=== PATIENT | female | born 1940 | race Caucasian/White ===

== ENCOUNTER 2016-08-09 14:54 | Emergency (ER) | payer MEDICARE ==
--- NOTE | 2016-08-09 15:57 | ERNOTE ---
Medical Problem HPI - Narrative Date of Service: 08/09/16 - General Chief Complaint: Nausea/Vomiting Time Seen by Provider: 08/09/16 15:56 Source: patient, family, RN notes reviewed Exam Limitations: no limitations - Immun/Allergies/Home Medications Immunizations: IMMUNIZATION HX Immunizations Up to Date Yes Allergies/Adverse Reactions: Allergies alcohol Allergy (Severe, Verified 08/09/16 15:04) Itching Sulfa (Sulfonamide Antibiotics) Allergy (Severe, Verified 08/09/16 15:04) Hives Home Medications: HOME MEDICATIONS Amlodipine Besylate 10 mg PO DAILY 08/29/13 [Last Taken Unknown] Aspirin [Aspirin Chewable] 81 mg PO DAILY 08/29/13 [Last Taken Unknown] Calcium Acetate [Phoslo] 667 mg PO TID 08/29/13 [Last Taken Unknown] Cinacalcet HCl [Sensipar] 30 mg PO DAILY 08/29/13 [Last Taken Unknown] Doxazosin Mesylate 4 mg PO DAILY 08/29/13 [Last Taken Unknown] Furosemide [Lasix] 80 mg PO BID 08/29/13 [Last Taken Unknown] Lanthanum Carbonate [Fosrenol] 1,000 mg PO TID 08/29/13 [Last Taken Unknown] Losartan Potassium 100 mg PO DAILY 08/29/13 [Last Taken Unknown] Ursodiol 250 mg PO QID 08/29/13 [Last Taken Unknown] Oseltamivir Phosphate [Tamiflu] 75 mg PO DAILY 08/09/16 [Last Taken Unknown] - History of Present History Narrative: 76 y/o female to ED by private vehicle for vomiting and feeling like she is dehydrated. She has been having vomiting and diarrhea, and not feeling well for about 5 days. She went to dialysis as usual early this morning, and then she saw her PCP and was diagnosed with influenza A. She was prescribed Tamiflu and took one dose when she got home, which she then threw up. She has also had a cough and chills. She cannot take any antipyretics for fever. Review of Systems - Review of Systems Constitutional: Present: fever, chills, fatigue, malaise, decreased activity level EYE: Present: no symptoms reported ENT: Present: nasal drainage. Absent: ear pain, nose congestion, sore throat Respiratory: Present: cough. Absent: shortness of breath, wheezing Cardiology: Absent: chest pain, syncope Gastrointestinal/Abdominal: Present: nausea, vomiting, diarrhea, eating less, drinking less. Absent: abdominal pain Genitourinary: Absent: dysuria, decreased urinary output Musculoskeletal: Present: muscle pain Skin: Absent: rash, lesions Neurological: Present: dizziness/light-headedness. Absent: headache Endocrine: Present: no symptoms reported Hematologic/Lymphatic: Present: no symptoms reported Psych: Present: no symptoms reported - Patient's Past Medical History Patient History - Medical: Anemia, Liver Disease - Cirrhosis, Renal Disease, Renal Failure - Chronic, stage 5, Other Patient History - Cardiac/Respiratory: Hypertension Patient History - Cancer: No Hx of Cancer Patient History - Surgical Procedures: Appendectomy, Colonoscopy, EGD, Hysterectomy, Total Knee Replacement, Other Patient History - Other: Other - Dialysis patient LMP (females 10-50): Menopausal - Social History Living Situations: home Psych History: No pertinent hx Alcohol Use: none Drug Use: none - Immunizations Immunizations Up to Date: Yes Physical Exam - Physical Exam General Appearance: Present: wd/wn, alert, other - appears mildly uncomfortable Ears, Nose, Throat: Present: hearing grossly normal, nasal congestion, normal pharynx. Absent: abnormal TM (R), abnormal TM (L), sinus pain/drainage Neck: Present: normal inspection, nontender, supple Respiratory: Present: no respiratory distress, normal breath sounds, no accessory muscle use, lungs clear Cardiovascular/Chest: Present: regular rate, rhythm, no murmur Gastrointestinal/Abdominal: Present: normal bowel sounds, nondistended, soft, tenderness - mild, diffuse Neurological Exam: Present: alert, oriented, normal mood/affect Skin Exam: Present: warm/dry, pallor ED Progress - Results and Orders Patient's Lab Results:: I have reviewed the patient's lab results. - Vital Signs Patient's Vital Signs:: I have reviewed the patient's vital signs. Vital Signs: Vital Signs 08/09/16 15:00 Temperature 38.0 C H Pulse Rate 59 L Respiratory 12 Rate Blood Pressure 166/73 O2 Sat by Pulse 95 Oximetry - Progress/Reassessment Chief Complaint: Nausea/Vomiting Progress:: Improved Progress Note-Subjective: 08/09/16 17:46 Verbalizes feeling better after IV NS bolus, tolerating small amounts of 7-Up, declines any nausea medication - states she doesn't want to take anymore than she already has to. Wants to go home after fluids. Discussed returning if symptoms worsen, patient agrees to plan. Departure - Departure Clinical Impression: Influenza A, Vomiting and diarrhea Disposition: Home Follow Up Needed Condition: Stable Instructions: Influenza, Adult, [id number] Additional Instructions: Continue your medications as directed Small amounts of clear liquids as tolerated Return for worsening symptoms Referrals: Roxie Cano DO [Primary Care Provider] -
[2016-08-09 16:18] LABS: Hemoglobin 10.7 gm/dL (12.5-16.0); Mean Corpuscular Hemoglobin 31.5 pg (27-31); Mean Corpuscular Hgb Conc 31.5 g/dl (32-36); Mean Platelet Volume 10.5 fl (6.0-9.5); Neutrophil # 2.4 K/mm3 (1.3-6.0); Neutrophil % 69.5 % (42-75.0); Platelet Count 100 K/mm3 (150-450); Red Cell Distribution Width 13.1 % (11.5-14.0); White Blood Count 3.5 K/mm3 (4.0-10.5)
--- OUTSIDE RECORDS SUMMARY | 2016-08-09 16:18 | XMS REPORT | Continuity of Care Document ---
:1940 Author Organization [facility] ([facility]) Address [address] [place] [address] Phone [phone] Care Team Providers Name Role Phone Lex Zuluaga Primary Care Provider [phone] Source Comments This disclosure is being made pursuant to the Care Everywhere program, applicable federal and state laws, and may not contain all informaitonavailable regarding this patient.[facility] ([facility]) Active Allergies and Adverse Reactions Allergen Noted Date Severity Reactions Comments Alcohol Antiseptic Pads 08/08/2012 Urticaria (Hives) Sulfadoxine Urticaria (Hives) Current Medications Prescription Sig. Disp. Refills Start End Date Status Date calcium acetate Take 667 mg by Active (PHOSLO) 667 mg cap mouth. With food. Takes approximately 5 capsules per day aspirin 81 mg take 81 mg by Active tablet mouth daily. losartan 100 mg Take 100 mg by Active tablet mouth at bedtime. lanthanum Take 1,000 mg by Active (FOSRENOL) 1,000 mg mouth 3 times chewable tablet daily with meals. cinacalcet Take 30 mg by Active (SENSIPAR) 30 mg mouth daily. tablet doxazosin 8 mg Take 8 mg by Active tablet mouth 2 times daily. cholecalciferol Take 2,000 Units Active (VITAMIN D3) 2,000 by mouth daily. unit tablet metoPROLol tartrate Take 12.5 mg by Active 25 mg tablet mouth 2 times daily. amLODIPine 10 mg Take 10 mg by Active tablet mouth daily. furosemide 80 mg Take 80 mg by Active tablet mouth daily. omeprazole 40 mg Take 1 capsule 90 capsule 3 Active enteric coated (40 mg total) by 6 capsule mouth daily. ursodiol 250 mg Take 2 tablets 360 tablet 3 01/27/201 Active tablet (500 mg total) by 7 mouth 2 times daily. ursodiol 250 mg Take 2 tablets 360 tablet 3 07/16/19 Discontinued tablet (500 mg total) by 5 17 mouth 2 times daily Active Problems Problem Noted Date Not immune to hep A or Hep B (has had series X2) 05/01/2015 Esophageal varices (1 small varix 06/2012) 09/20/2013 Overview: 07/20/12: esophagus appeared endoscopically normal and the Z-line was normal at 37 cm from the incisors. There was one very small esophageal varix that was without stigmata. 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 Overview: Last Assessment & Plan: She is a 75-year-old patient of Dr. Lex Zuluaga who has a background history of autosomal dominant polycystic kidney disease, end-stage renal disease on dialysis since 2007, (not a transplant audie te because of her liver) and chronic hypertension. 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 No history of ascites or encephalopathy, or GI bleeding. EGD on 2014 revealed a single esophageal varix without bleeding. It was small and did not require banding. There was no portal hypertensive gastropathy She has had an excellent response of her PBC to ursodeoxycholic acid. She has failed 2 attempts at vaccination for hepatitis A and B. she is reluctant to follow in [place] said before her liver and wasgiven a when necessary appointment to come back. Anemia in ESRD (end-stage renal disease) 02/09/2011 Last Assessment & Plan: Not a problem currently. Thrombocytopenia 02/09/2011 Uric acid nephrolithiasis 12/20/2008 Hypertension 12/20/2008 Polycystic kidney disease 10/10/2001 Overview: Numerous liver cysts on US in 10/10/2001. Largest 5.4 cm in Right lobe. No splenomegaly or evidence of cirrhosis/portal hypertension. 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 FREDERIC, ASMA and UC-ANCA were negative. Started on TIP 2000. Increased to 750 mg bid in 2002. Has had improving enzymes since with AP 170, GGT 47, AST 22 and ALT 14 on 11/12/08. 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 Cirrhosis (liver biopsy showing bridging fibrosis and imaging liver nodularity spleen 9.6 cm and platelets 106) -grade 1 nonbleeding varices (2012). No as cites. No encephalopathy She also has autosomal dominant polycystic kidney disease with end-stage kidney disease on dialysis since 2007 complicated by anemia. 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 Now with failing kidneys and approaching need for dialysis. Had AV fistula placed on 03/27. Last Assessment & Plan: Fighting high BP on dialysis X 5 years. Resolved Problems Problem Noted Date Resolved Date S/P biopsy 09/12/2012 02/01/2013 Most Recent Encounters Date Type Specialty Providers Description 07/16/2016 Refill Med GI/Hepatology Юлия Mcgovern, Dx: PBC ( primary biliary RN cirrhosis) (Primary Dx) 05/21/2016 Refill Med GI/Hepatology Susan Mays Dx: NSAID induced gastritis (Primary Dx) Social History Tobacco Use Types Packs/Day Years Used Date Never Smoker Smokeless Tobacco: Never Used Tobacco Cessation:Counseling Given: Yes Comments: Alcohol Use Drinks/Week oz/Week Comments No Occassional, less than once monthly Last Filed Vital Signs Vital Sign Reading Time Taken Blood Pressure 164/70 03/18/2016 7:00 AM CDT Pulse 80 03/18/2016 7:00 AM CDT Temperature 35.6 C (96.1 F) 03/18/2016 7:00 AM CDT Respiratory Rate 16 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 Height 1.549 m (5' 1") 03/18/2016 7:00 AM CDT Weight 60 kg (132 lb 4.4 oz) 03/18/2016 7:00 AM CDT Body Mass Index 25.01 03/18/2016 7:00 AM CDT Oxygen Saturation 93% 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 Plan of Care Date Type Specialty Providers Description 03/17/2017 Appointment Radiology Chief Comp: Patient Reported Reason For Visit 03/17/2017 Appointment Med GI/Hepatology Jacob Mathur MD Chief Comp: Patient [address] [place] [address] Visit [phone] (Fax) Health Maintenance Due Date Last Done Comments Hepatitis B Vaccine (1 of 3 - Primary 1940 Series) Tdap Vaccine 1953 Td Vaccine 1960 Mammogram 1982 Colonoscopy 07/04/1992 Zoster Vaccine 2002 Osteoporosis Screening (DXA Bone 2007 Density) Pneumococcal Vaccine (1 of 2 - PCV13) 2007 Lipid Disorder Screening 01/20/2015 01/20/2010, 11/14/2007, 09/10/2003 Influenza Vaccine: Seasonal (#1) 01/19/2016 Results from Last 3 Months Not on file
[2016-08-09 16:43] LABS: BUN/Creatinine Ratio 4.2 (9.0-21.6); Bilirubin, Total 0.4 mg/dL (0.0-1.1); Ca. Corrected For Albumin 8.1 mg/dL (8.4-10.2); Calcium * 7.6 mg/dL (7.9-10.9); Carbon Dioxide 31.6 mmol/L (24-32.6); Potassium 4.6 mmol/L (3.4-4.6); Total Protein 6.8 gm/dL (6.2-8.2)
[2016-08-09] MEDS: NORMAL SALINE 1,000 ML IV ONE ×2 (16:46→16:48)
[2016-08-09 17:59] VITALS: BP 194/63
== END 2016-08-09 18:07 | disposition home or self-care (01) ==
LOC: ER 14:54
DX: J10.1 Influenza due to other identified influenza virus with other respiratory manifestations (principal); N19 Unspecified kidney failure; I10 Essential (primary) hypertension

== ENCOUNTER 2016-10-22 13:28 | Emergency (ER) | payer MEDICARE ==
[2016-10-22 14:01] LABS: Hematocrit 35.2 % (37.0-47.0); Hemoglobin 11.2 gm/dL (12.5-16.0); Mean Corpuscular Hemoglobin 32.5 pg (27-31); Mean Corpuscular Hgb Conc 31.8 g/dl (32-36); Mean Platelet Volume 9.5 fl (6.0-9.5); Neutrophil # 2.8 K/mm3 (1.3-6.0); Neutrophil % 62.2 % (42-75.0); Platelet Count 106 K/mm3 (150-450); Red Blood Count 3.45 M/mm3 (4.2-5.4); Red Cell Distribution Width 14.5 % (11.5-14.0); White Blood Count 4.5 K/mm3 (4.0-10.5)
--- NOTE | 2016-10-22 14:05 | ERNOTE ---
<Kelly Lea - Last Filed: 10/22/16 14:04> Medical Problem HPI - General Chief Complaint: General Assessment Time Seen by Provider: 10/22/16 13:43 - Immun/Allergies/Home Medications Immunizations: IMMUNIZATION HX Immunizations Up to Date Yes History of Influenza Vaccine Yes Hx Pneumococcal Vaccination No Allergies/Adverse Reactions: Allergies alcohol Allergy (Severe, Verified 10/22/16 13:38) Itching Sulfa (Sulfonamide Antibiotics) Allergy (Severe, Verified 10/22/16 13:38) Hives Home Medications: HOME MEDICATIONS Amlodipine Besylate 10 mg PO DAILY 08/29/13 [Last Taken Unknown] Aspirin [Aspirin Chewable] 81 mg PO DAILY 08/29/13 [Last Taken Unknown] Calcium Acetate [Phoslo] 667 mg PO TID 08/29/13 [Last Taken Unknown] Cinacalcet HCl [Sensipar] 30 mg PO DAILY 08/29/13 [Last Taken Unknown] Doxazosin Mesylate 4 mg PO DAILY 08/29/13 [Last Taken Unknown] Furosemide [Lasix] 80 mg PO BID 08/29/13 [Last Taken Unknown] Lanthanum Carbonate [Fosrenol] 1,000 mg PO TID 08/29/13 [Last Taken Unknown] Losartan Potassium 100 mg PO DAILY 08/29/13 [Last Taken Unknown] Ursodiol 250 mg PO QID 08/29/13 [Last Taken Unknown] - Patient's Past Medical History Patient History - Medical: Anemia, Liver Disease, Renal Disease, Renal Failure, Other Patient History - Cardiac/Respiratory: Hypertension Patient History - Cancer: No Hx of Cancer Patient History - Surgical Procedures: Appendectomy, Colonoscopy, EGD, Hysterectomy, Total Knee Replacement, Other Patient History - Other: Other - Social History Living Situations: home Psych History: No pertinent hx Smoking Status: Never smoker Alcohol Use: none Drug Use: none - Immunizations Immunizations Up to Date: Yes Hx Pneumococcal Vaccination: No History of Influenza Vaccine: Yes Physical Exam - Physical Exam Pelvic Exam: Present: lesions - 9o cloc inner R vulva and 3 o clock inner L labia, puch biopsy sites with minimal bleeding but with active clotting healing as expected no closure needed. ED Progress - Vital Signs Vital Signs: Vital Signs 10/22/16 13:33 Temperature 36.2 C L Pulse Rate 59 L Respiratory 16 Rate Blood Pressure 180/72 O2 Sat by Pulse 99 Oximetry - Progress/Reassessment Chief Complaint: General Assessment Departure - Departure Clinical Impression: Bleeding Disposition: Home self-care Condition: Stable Additional Instructions: Rest. You have an appointment with your Supervisor [employer] on TuesdayOctober 25 at 10: 45. Return here for increased bleeding, lightheadedness, abdominal pain or if your condition worsens or changes in any way. Referrals: Roxie Cnao DO [Primary Care Provider] - <Flip Madden - Last Filed: 10/22/16 14:15> Medical Problem HPI - Narrative Date of Service: 10/22/16 - General Source: patient Exam Limitations: no limitations - Immun/Allergies/Home Medications Immunizations: IMMUNIZATION HX Immunizations Up to Date Yes History of Influenza Vaccine Yes Hx Pneumococcal Vaccination No - History of Present History Narrative: Patient presents to the ED for bleeding from her genital area after biopsy. She denies fever, lightheadedness, abdominal pain or chest pain. She relates this has been ongoing since the biopsy and will wax and wane. No other urinary problems noted. She is on dialysis and takes ASA. She tells me she thinks the bleeding is from the heparin at dialysis and her known low platelets. No clots noted. She does not wish to have a male do exam, Kelly Lea will do the exam for me and pt agreeable. Timing: intermittent Severity: mild Modifying Factors - (Improves): Present: other - nothing Modifying Factors - (Worsens): Present: other - nothing Review of Systems - Review of Systems Constitutional: Absent: fever Respiratory: Absent: shortness of breath Cardiology: Absent: chest pain Gastrointestinal/Abdominal: Absent: abdominal pain Genitourinary: Present: See HPI Neurological: Absent: weakness Hematologic/Lymphatic: Present: See HPI Physical Exam - Physical Exam General Appearance: Present: alert, no apparent distress Eye Exam: Normal inspection: bilateral, PERRL: bilateral Ears, Nose, Throat: Present: normal ENT inspection Neck: Present: normal inspection Respiratory: Present: no respiratory distress, normal breath sounds, no accessory muscle use Cardiovascular/Chest: Present: regular rate, rhythm Gastrointestinal/Abdominal: Present: normal bowel sounds, nontender, nondistended, soft Extremity Exam: Present: normal range of motion Neurological Exam: Absent: motor weakness Skin Exam: Absent: skin rash ED Progress - Results and Orders Patient's Lab Results:: I have reviewed the patient's lab results. - Vital Signs Patient's Vital Signs:: I have reviewed the patient's vital signs. Vital Signs: Vital Signs 10/22/16 13:33 Temperature 36.2 C L Pulse Rate 59 L Respiratory 16 Rate Blood Pressure 180/72 O2 Sat by Pulse 99 Oximetry - Progress/Reassessment Progress Note-Subjective: 10/22/16 14:11 Appointment made with Log Manager Tuesday. Pt stable, no acute anemia. Stable without any significant active bleeding at this time. She feels like going home. Bleeding was from biposy site. I discussed warning signs and reasons to return as well as the need for close f/u.
--- OUTSIDE RECORDS SUMMARY | 2016-10-22 14:05 | XMS REPORT | Continuity of Care Document ---
:1940 Author Organization [facility] ([facility]) Address [address] [place] [address] Phone [phone] Care Team Providers Name Role Phone Lex Zuluaga Primary Care Provider [phone] Source Comments This disclosure is being made pursuant to the Care Everywhere program, applicable federal and state laws, and may not contain all informaitonavailable regarding this patient.[facility] ([facility]) Active Allergies and Adverse Reactions Allergen Noted Date Severity Reactions Comments Alcohol Antiseptic Pads 08/08/2012 Urticaria (Hives) Sulfadoxine Urticaria (Hives) Current Medications Prescription Sig. Disp. Refills Start Date End Date Status calcium acetate Take 667 mg by Active (PHOSLO) 667 mg cap mouth. With food. Takes approximately 5 capsules per day aspirin 81 mg tablet take 81 mg by mouth Active daily. losartan 100 mg Take 100 mg by Active tablet mouth at bedtime. lanthanum (FOSRENOL) Take 1,000 mg by Active 1,000 mg chewable mouth 3 times daily tablet with meals. cinacalcet (SENSIPAR) Take 30 mg by mouth Active 30 mg tablet daily. doxazosin 8 mg tablet Take 8 mg by mouth Active 2 times daily. cholecalciferol Take 2,000 Units by Active (VITAMIN D3) 2,000 mouth daily. unit tablet metoPROLol tartrate Take 12.5 mg by Active 25 mg tablet mouth 2 times daily. amLODIPine 10 mg Take 10 mg by mouth Active tablet daily. furosemide 80 mg Take 80 mg by mouth Active tablet daily. omeprazole 40 mg Take 1 capsule (40 90 capsule 3 05/24/2016 Active enteric coated mg total) by mouth capsule daily. ursodiol 250 mg Take 2 tablets (500 360 tablet 3 07/16/2016 Active tablet mg total) by mouth 2 times daily. Active Problems Problem Noted Date Not immune [...] B. 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 Plan of Care Date Type Specialty Providers Description 03/24/2017 Hospital Encounter Radiology Subj: Appointment Scheduled 03/24/2017 Appointment Med GI/Hepatology Jacob Mathur, Subj: Appointment MD Rescheduled [address] [place] [address] [phone] (Fax) Health Maintenance Due Date Last Done Comments Hepatitis B Vaccine (1 of 3 - Primary 1940 Series) Tdap Vaccine 1953 Td Vaccine 1960 Mammogram 1982 Colonoscopy 07/04/1992 Zoster Vaccine 2002 Osteoporosis Screening (DXA Bone 2007 Density) Pneumococcal Vaccine (1 of 2 - PCV13) 2007 Lipid Disorder Screening 01/20/2015 01/20/2010, 11/14/2007, 09/10/2003 Influenza Vaccine: Seasonal (Season 01/18/2017 Ended) Results from Last 3 Months EXTERNAL PROTHROMBIN TIME (PT)/INR (09/20/2016) Component Value Range Ext Prothrombin Time 10.6 9.4-11.4 SECONDS Ext INR 1.02 0.9-1.1 EXTERNAL ALANINE AMINOTRANSFERASE (ALT) (09/20/2016) Component Value Range Ext ALT 13(A) 19-67 U/L EXTERNAL ALBUMIN (09/20/2016) Component Value Range Ext Albumin 2.8(A) 3.4-5.0 G/DL EXTERNAL CREATININE (09/20/2016) Component Value Range Ext Creatinine 5.47(A) 0.4-1.4 MG/DL EXTERNAL ALPHA FETO PROTEIN (AFP) (09/20/2016) Component Value Range Ext AFP 5.0 0-6.1 NG/ML
[2016-10-22 14:30] VITALS: BP 157/72
== END 2016-10-22 15:00 | disposition home or self-care (01) ==
LOC: ER 13:28
DX: N93.9 Abnormal uterine and vaginal bleeding, unspecified (principal); K76.9 Liver disease, unspecified; I10 Essential (primary) hypertension